=== PATIENT | male | born 1995 | race African-American/Black ===

== ENCOUNTER 2018-07-28 14:58 | Emergency (ER) | payer MEDICARE, OTHER ==
[~2018-07-28] VITALS: Ht 165.1 cm; Wt 140.7 kg
[2018-07-28 15:06] VITALS: Ht 165.1 cm; Wt 140.7 kg
--- NOTE | 2018-07-28 16:50 | ERD ---
ER Documentation Chief Complaint Chief Complaint SUICIDE ATTEMPT TODAY - TOLD TO CHECK IN BY CLUB CAR ATTENDANT ADRI This is a 22-year-old transgender woman currently on hormone therapy referred here by her counselor for recent thoughts of suicide, she handed over her certificate and some other paperwork and stated she was going to take a long bus ride and contemplate whether she wants to live any longer or not. She denied any specific plan. Her counselor felt she has had a recent increasing thoughts of suicide and referred her here. Patient does use hormonal therapy and denies any pain, no complaints of chest pain or shortness of breath, no fevers or chills, no headache or blurry vision. ROS All systems reviewed and are negative except as per history of present illness. 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) Hx Alcohol Use: No Hx Substance Use: No Hx Tobacco Use: No Smoking Status: Never smoker FmHx Family History: No diabetes Physical Exam Vitals Vital Signs Date Temp Pulse Resp B/P (MAP) Pulse Ox O2 O2 Flow FiO2 Time Delivery Rate 07/29/18 98.0 80 20 149/100 98 Room Air 12:26 (116) 07/29/18 98.2 69 18 130/85 96 08:31 (100) 07/29/18 98.1 62 18 137/97 98 06:22 (110) 07/29/18 98.1 62 18 137/97 98 06:18 (110) 07/29/18 53 15 153/102 100 06:04 (119) 07/29/18 98.1 66 16 148/90 96 00:04 (109) 07/28/18 141/85 16:20 (103) 07/28/18 98.1 77 16 155/101 96 15:35 (119) 07/28/18 98.1 72 16 161/101 96 15:06 (121) Physical Exam Const: No apparent distress well-developed well-nourished, afebrile Head: Atraumatic Eyes: Normal Conjunctiva ENT: Normal External Ears, Nose and Mouth. Neck: Full range of motion. No meningismus. Resp: Clear to auscultation bilaterally Cardio: Regular rate and rhythm, no murmurs Abd: Soft, non tender, non distended. Skin: No petechiae or rashes Back: No midline or flank tenderness Ext: No cyanosis, or edema, calves symmetrical Neur: Awake and alert x3, no focal deficits or facial asymmetry, gait normal Psych: Flat affect Result Diagram: 07/28/18 1535 07/28/18 1535 Results 24 hrs Laboratory Tests Test 07/28/18 15:35 07/28/18 19:30 07/28/18 20:18 White Blood Count 7.5 10^3/ul Red Blood Count 4.49 10^6/ul Hemoglobin 14.5 g/dl Hematocrit 41.6 % Mean Corpuscular Volume 92.7 fl Mean Corpuscular Hemoglobin 32.3 pg Mean Corpuscular 34.9 g/dl Hemoglobin Concent Red Cell Distribution Width 12.2 % Platelet Count 312 10^3/UL Mean Platelet Volume 10.1 fl Immature Granulocytes % 0.100 % Neutrophils % 68.0 % Lymphocytes % 24.5 % Monocytes % 6.8 % Eosinophils % 0.3 % Basophils % 0.3 % Nucleated Red Blood Cells % 0.0 /100WBC Immature Granulocytes # 0.010 10^3/ul Neutrophils # 5.1 10^3/ul Lymphocytes # 1.8 10^3/ul Monocytes # 0.5 10^3/ul Eosinophils # 0.0 10^3/ul Basophils # 0.0 10^3/ul Nucleated Red Blood Cells # 0.0 10^3/ul Sodium Level 141 mmol/L Potassium Level 4.4 mmol/L Chloride Level 106 mmol/L Carbon Dioxide Level 24 mmol/L Anion Gap 11 Blood Urea Nitrogen 12 mg/dl Creatinine 0.79 mg/dl Est Glomerular Filtrat > 60 mL/min Rate mL/min Glucose Level 101 mg/dl Calcium Level 9.4 mg/dl Total Bilirubin 0.6 mg/dl Direct Bilirubin 0.00 mg/dl Indirect Bilirubin 0.6 mg/dl Aspartate Amino 40 IU/L Transf (AST/SGOT) Alanine 55 IU/L Aminotransferase (ALT/SGPT) Alkaline Phosphatase 94 IU/L Total Protein 8.8 g/dl Albumin 4.7 g/dl Globulin 4.10 g/dl Albumin/Globulin Ratio 1.14 Salicylates Level < 1.0 mg/dl Acetaminophen Level < 10.0 ug/ml Ethyl Alcohol Level < 10.0 mg/dl Urine Color YELLOW Urine Clarity SLIGHTLY CLOUDY Urine pH 5.0 Urine Specific [place] 1.024 Urine Ketones NEGATIVE mg/dL Urine Nitrite NEGATIVE mg/dL Urine Bilirubin NEGATIVE mg/dL Urine Urobilinogen NEGATIVE mg/dL Urine Leukocyte Esterase NEGATIVE Arleen/ul Urine Microscopic RBC 1 /HPF Urine Microscopic WBC 5 /HPF Urine Squamous Epithelial Cells FEW /HPF Urine Mucus FEW /HPF Urine Hemoglobin NEGATIVE mg/dL Urine Glucose NEGATIVE mg/dL Urine Total Protein NEGATIVE mg/dl Urine Opiates Screen Negative Urine Barbiturates Negative Urine Amphetamines Screen Negative Urine Benzodiazepines Screen Negative Urine Cocaine Screen Negative Urine Cannabinoids Positive POC Beta HCG, Qualitative NEGATIVE Current Medications Medications Dose Sig/Arjun Start Time Status Last (Trade) Ordered Route PRN Stop Time Admin Dose Reason Admin Clonidine 0.1 mg ONCE ONCE 07/28/18 DC (Catapres) PO 16:30 07/28/18 16:32 Lorazepam 1 mg ONCE ONCE 07/28/18 DC 07/28/18 (Ativan) IM 18:00 18:06 07/28/18 18:01 Haloperidol 5 mg ONCE ONCE 07/28/18 DC 07/28/18 (Haldol) IM 20:00 19:59 07/28/18 20:01 15 mg ONCE STAT 07/28/18 DC Aripiprazole PO 23:43 (Abilify) 07/28/18 23:45 Lorazepam 1 mg ONCE ONCE 07/29/18 DC (Ativan) PO 00:00 07/29/18 00:01 Haloperidol 5 mg ONCE ONCE 07/29/18 DC 07/29/18 (Haldol) IM 06:00 05:50 07/29/18 06:01 50 mg ONCE ONCE 07/29/18 DC 07/29/18 Diphenhydrami IM 06:00 05:50 ne HCl 07/29/18 06:01 (Benadryl) Lorazepam 2 mg ONCE ONCE 07/29/18 DC 07/29/18 (Ativan) IM 06:00 05:50 07/29/18 06:01 Lorazepam 2 mg ONCE ONCE 07/29/18 DC 07/29/18 (Ativan) IM 12:30 12:20 07/29/18 12:31 50 mg ONCE ONCE 07/29/18 DC 07/29/18 Diphenhydrami IM 12:30 12:20 ne HCl 07/29/18 12:31 (Benadryl) Haloperidol 5 mg ONCE ONCE 07/29/18 DC 07/29/18 (Haldol) IM 12:30 12:20 07/29/18 12:31 Haloperidol 5 mg ONCE ONCE 07/29/18 DC (Haldol) IM 12:30 07/29/18 12:31 Ketamine 500 mg STK-MED 07/29/18 DC HCl ONCE .ROUTE 12:43 (Ketalar) 07/29/18 12:44 Ketamine 140 mg ONCE STAT 07/29/18 DC HCl IM 12:44 (Ketamine 07/29/18 12:46 HCl) Procedures/MDM Security one-to-one watch was established and tele-psychiatry was consulted. CBC and electrolytes are normal, liver function tests were normal, drug screen negative, ethanol level negative For hypertension I administered clonidine 0.1 mg p.o. x1. Tele-psychiatry was consulted and recommended 5150 behavioral hold Patient's behavioral symptoms have stabilized while in the department. Patient is medically cleared and appropriate for psychiatric evaluation and work up. No e/o neurologic, toxic, infectious, or metabolic cause. Departure Diagnosis: Primary Impression: Psychological disorder Additional Impression: Hypertension Hypertension type: essential hypertension Qualified Codes: I10 - Essential (primary) hypertension Condition: Stable CESAR MCKAY MD July 28, 2018 16:50
[2018-07-28] MEDS ORDERED: LORAZEPAM 2 MG INJ IM ONE (18:00)
[2018-07-28] MEDS ORDERED: HALOPERIDOL 5 MG INJ IM ONE (20:00)
--- NOTE | 2018-07-28 20:05 | PSY ---
Date/Time of Note Date/Time of Note DATE: 07/28/18 TIME: 21:01 Psychiatric Subjective Eval Consent Pt consented to telemedicine: Yes Subjective Evaluation Patient location: emergency Chief Complaint: SUICIDE ATTEMPT TODAY - TOLD TO CHECK IN BY RN [facility] Reason for consult: suicidality History of present illness the patient was referred to the emergency room by her therapist. she told the therapist that she was hearing voices telling her to hurt herself. she gave the therapist her certificate and other documents to keep. when seen, the patient is quite disorganized. some of her thought processes are illogical. she talks about monsters. she then says that she is hearing voices that are telling her to do bad things. she does not want to do them and that is why she called a friend and came to the hospital. the patient is very anxious. she continues to report that she is hearing voices that are telling her to hurt herself. Past psychiatric history the patient has a long history of psychiatric illness. i suspect the patient has schizoaffective disorder. the patient tells me that she has not been taking any medications recently. she has a history of previous hospitalizations. Hospitalization: yes Family History denies Medical history Problems Medical Problems: (1) Hypertension Status: Acute (2) Psychological disorder Status: Acute Allergies: Coded Allergies: No Known Allergy (Unverified , 07/28/18) Substance Abuse Substance use: No known substance abuse Substance abuse history: No Prior substance abuse treatmen: No Social History Marital status: single Level of education: high school DPA/Conservatorship: No Occupation/Chcf: disabled Psychiatric Objective Eval Review of Systems: Review of Systems: Not Applicable Physical Examination: Physical Examination: Not Applicable Mental Status Examination: Appearance: Groomed Eye Contact: Fair Psychomotor Activity: Normal Behavior: Guarded Speech: Clear AFFECT: Anxious Mood: Anxious Though Process: Perseverative Thought Content: Hallucinations Suicidal: Yes Homicidal: No On 72 hour hold: Yes Orientation: x4 Cognition: Alert Insight: Intact Judgement: Intact Attention Span: Intact Laboratory Results Laboratory Tests Test 07/28/18 15:35 07/28/18 19:30 White Blood Count 7.5 10^3/ul Red Blood Count 4.49 10^6/ul Hemoglobin 14.5 g/dl Hematocrit 41.6 % Mean Corpuscular Volume 92.7 fl Mean Corpuscular Hemoglobin 32.3 pg Mean Corpuscular Hemoglobin Concent 34.9 g/dl Red Cell Distribution Width 12.2 % Platelet Count 312 10^3/UL Mean Platelet Volume 10.1 fl Immature Granulocytes % 0.100 % Neutrophils % 68.0 % Lymphocytes % 24.5 % Monocytes % 6.8 % Eosinophils % 0.3 % Basophils % 0.3 % Nucleated Red Blood Cells % 0.0 /100WBC Immature Granulocytes # 0.010 10^3/ul Neutrophils # 5.1 10^3/ul Lymphocytes # 1.8 10^3/ul Monocytes # 0.5 10^3/ul Eosinophils # 0.0 10^3/ul Basophils # 0.0 10^3/ul Nucleated Red Blood Cells # 0.0 10^3/ul Sodium Level 141 mmol/L Potassium Level 4.4 mmol/L Chloride Level 106 mmol/L Carbon Dioxide Level 24 mmol/L Anion Gap 11 Blood Urea Nitrogen 12 mg/dl Creatinine 0.79 mg/dl Est Glomerular Filtrat Rate mL/min > 60 mL/min Glucose Level 101 mg/dl Calcium Level 9.4 mg/dl Total Bilirubin 0.6 mg/dl Direct Bilirubin 0.00 mg/dl Indirect Bilirubin 0.6 mg/dl Aspartate Amino Transf (AST/SGOT) 40 IU/L Alanine Aminotransferase (ALT/SGPT) 55 IU/L Alkaline Phosphatase 94 IU/L Total Protein 8.8 g/dl Albumin 4.7 g/dl Globulin 4.10 g/dl Albumin/Globulin Ratio 1.14 Salicylates Level < 1.0 mg/dl Acetaminophen Level < 10.0 ug/ml Ethyl Alcohol Level < 10.0 mg/dl Urine Color YELLOW Urine Clarity SLIGHTLY CLOUDY Urine pH 5.0 Urine Specific [place] 1.024 Urine Ketones NEGATIVE mg/dL Urine Nitrite NEGATIVE mg/dL Urine Bilirubin NEGATIVE mg/dL Urine Urobilinogen NEGATIVE mg/dL Urine Leukocyte Esterase NEGATIVE Arleen/ul Urine Microscopic RBC 1 /HPF Urine Microscopic WBC 5 /HPF Urine Squamous Epithelial Cells FEW /HPF Urine Mucus FEW /HPF Urine Hemoglobin NEGATIVE mg/dL Urine Glucose NEGATIVE mg/dL Urine Total Protein NEGATIVE mg/dl Urine Opiates Screen Negative Urine Barbiturates Negative Urine Amphetamines Screen Negative Urine Benzodiazepines Screen Negative Urine Cocaine Screen Negative Urine Cannabinoids Positive Assessment and Plan Assessment/Diagnosis Diagnosis schizoaffective disorder, bipolar type Recommendation/Plan Medication Management i recommend abilify, 15 mg a1 now. ativan 1 mg a1 now. the patient requires inpatient hospitalization at this time because of a danger to self associated with her psychosis. Multiple antipsychotics: No Discharge Disposition: Psychiatric inpatient Legal Status: Continue involuntary hold TAY SIMMONS July 28, 2018 20:05
[2018-07-28] MEDS ORDERED: ARIPIPRAZOLE 5 MG TAB PO STA (23:43)
--- NOTE | 2018-07-28 23:44 | QN ---
Documentation Comment Observation Note: Time: 4 hours Family Hx: Negative for diabetes Evaluation: Multiple exams showed improving symptoms and no evidence of clinical decompensation. FRANCES KERR MD July 28, 2018 23:44
[2018-07-29] MEDS: LORAZEPAM 1 MG TAB PO ONE ×2 (05:38)
[2018-07-29] MEDS ORDERED: HALOPERIDOL 5 MG INJ IM ONE ×3 (06:00→12:30)
[2018-07-29] MEDS ORDERED: DIPHENHYDRAMINE 50 MG INJ IM ONE ×2 (06:00→12:30)
[2018-07-29] MEDS ORDERED: LORAZEPAM 2 MG INJ IM ONE ×2 (06:00→12:30)
[2018-07-29] MEDS ORDERED: KETAMINE (50 MG/ML) 10 ML VIAL ONE ×2 (12:43→18:48)
[2018-07-29] MEDS ORDERED: KETAMINE HCL (50 MG/ML) 1ml syringe IM STA ×2 (12:44→18:47)
--- NOTE | 2018-07-29 13:59 | EN ---
Date/Time of Note Date/Time of Note DATE: 07/29/18 TIME: 13:58 ER Progress Note This is a 22-year-old male, transgender that prefers to be called Kell. The patient had been placed on a 5150. I reviewed the telemetry psychiatrist recommendations which included Abilify and Ativan. Nursing staff approached me and indicated that the patient was becoming extremely violent. The patient weighs 140 kg and took multiple nurses security guards and myself to attempt to hold the patient down. However this was unsuccessful as was verbal de- escalation. The patient was biting kicking and screaming. The patient appeared to be a threat to others. Haldol and Ativan did not improve the patient's symptoms. The patient started to bite through the restraints. The patient continued to attempt to find nursing staff by hitting and kicking and screaming. Therefore at this time I administered ketamine as the patient appeared to be a significant danger to both herself and nursing staff. The patient received a total of 2 mg/kg of ketamine. The patient had already been placed on a relay operator and was watched very closely. There was no concern of airway compromise station. The patient was now resting calmly. NELLIE CLAUDIO MD July 29, 2018 13:59
[2018-07-29] MEDS ORDERED: ARIPIPRAZOLE 5 MG TAB PO STA (20:57)
[2018-07-29] MEDS ORDERED: ARIPIPRAZOLE 10 MG TAB PO ONE (21:00)
[2018-07-30] MEDS ORDERED: DIPHENHYDRAMINE 50 MG INJ IM ONE
[2018-07-30] MEDS ORDERED: HALOPERIDOL 5 MG INJ IM ONE
[2018-07-30] MEDS ORDERED: LORAZEPAM 2 MG INJ IM ONE
[2018-07-30] MEDS ORDERED: KETAMINE HCL (50 MG/ML) 1ml syringe IM STA (00:29)
[2018-07-30 01:10] VITALS: BP 146/95; PULSE 89; RESP 17
== END 2018-07-30 01:20 | disposition home or self-care (01) ==
LOC: E/R 14:58 → EDSEX 14:58 → E/R 07-30 01:20
DX: F99 Mental disorder, not otherwise specified (principal); I10 Essential (primary) hypertension; E66.9 Obesity, unspecified; Z68.43 Body mass index [BMI] 50.0-59.9, adult
CPT/HCPCS: 36415; 80053; 80307; 81001; 81003; 81025; 85025; 96372; 99284; J1200; J1630; J2060; J0400

== ENCOUNTER 2018-08-13 00:16 | Emergency (ER) | payer MEDICARE, OTHER ==
[~2018-08-13] VITALS: Ht 175.3 cm; Wt 144.9 kg
[2018-08-13 00:31] VITALS: BP 159/96; PULSE 74; RESP 16; Ht 175.3 cm; Wt 144.9 kg
--- NOTE | 2018-08-13 02:21 | ERD ---
ER Documentation Chief Complaint Chief Complaint C/O ,HEARING VOICES. HPI This is a 23-year-old male who presents to the emergency room for evaluation of depression and "I might have heard voices". The patient denies any homicidal or suicidal ideation. The patient states that he does not want to be in the emergency room. He states that he is going to see a new therapist and he does not know why he came to the emergency room today. The patient states that his therapist was with him earlier today. ROS All systems reviewed and are negative except as per history of present illness. 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 Neck: Full range of motion. No meningismus. Resp: Clear to auscultation bilaterally Cardio: Regular rate and rhythm, no murmurs Abd: Soft, non tender, non distended. Normal bowel sounds Skin: No petechiae or rashes Back: No midline or flank tenderness Ext: No cyanosis, or edema Neur: Awake and alert Psych: Normal Mood and Affect Procedures/MDM This 23-year-old male presents to the ER for evaluation of possible auditory hallucinations. On my exam the patient denies any homicidal ideation, denies an y suicidal ideation. I asked the patient if he would like to be evaluated by psychiatrist. The patient states "I would like to go home". The patient also states "I do not like being in hospitals". When asked the patient why he was in the emergency room, he stated that his therapist told him he should come to the emergency room but he is adamantly denying any homicidal ideation or suicidal ideation. Given the fact that the patient does not wish to hurt himself or anyone else, does not appear to be a threat to himself or the community the patient will be discharged at this time. He was advised he can return to the ER at any moment for reevaluation. He is refusing all blood work at this time Departure Diagnosis: Primary Impression: Depression Condition: Stable Patient Instructions: Depression Referrals: ON LICENSE OF [facility] YOU HAVE RECEIVED A MEDICAL SCREENING EXAM AND THE RESULTS INDICATE THAT YOU DO NOT HAVE A CONDITION THAT REQUIRES URGENT TREATMENT IN THE EMERGENCY DEPARTMENT. FURTHER EVALUATION AND TREATMENT OF YOUR CONDITION CAN WAIT UNTIL YOU ARE SEEN IN YOUR DOCTORS OFFICE WITHIN THE NEXT 1-2 DAYS. IT IS YOUR RESPONSIBILITY TO MAKE AN APPOINTMENT FOR FOLOW-UP CARE. IF YOU HAVE A PRIMARY DOCTOR --you should call your primary doctor and schedule an appointment IF YOU DO NOT HAVE A PRIMARY DOCTOR YOU CAN CALL OUR PHYSICIAN REFERRAL HOTLINE AT IF YOU CAN NOT AFFORD TO SEE A PHYSICIAN YOU CAN CHOSE FROM THE FOLLOWING ON LICENSE OF [facility] [address] [facility]. [facility] [address] [facility] [facility] [address] [facility] [address] [facility] [address] [facility] [facility]. [address] Additional Instructions: Call your primary care doctor TOMORROW for an appointment during the next 1-2 days.See the doctor sooner or return here if your condition worsens before your appointment time. SHARI MANN DO Aug 13, 2018 02:21
== END 2018-08-13 02:29 | disposition home or self-care (01) ==
LOC: E/R 00:16
DX: F32.9 Major depressive disorder, single episode, unspecified (principal)
CPT/HCPCS: 99282